=== PATIENT | female | born 1965 | race Caucasian/White ===

== ENCOUNTER 2019-02-28 20:57 | Emergency (ER) | payer OTHER ==
[~2019-02-28] VITALS: Ht 157.5 cm; Wt 84.0 kg
[~2019-02-28 20:57] MED LIST: LIDOcaine 1% W/epiNEPHrine 1:100,000 20ml vial ONE
[2019-02-28] MEDS ORDERED: META800T87 PO (21:18)
[2019-02-28 21:28] VITALS: BP 142/97
== END 2019-02-28 21:31 | disposition home or self-care (01) ==
LOC: ER 20:57
DX: M62.830 Muscle spasm of back (principal); M54.6 Pain in thoracic spine; Z88.1 Allergy status to other antibiotic agents; Z88.2 Allergy status to sulfonamides; Z88.8 Allergy status to other drugs, medicaments and biological substances; Z79.899 Other long term (current) drug therapy
CPT/HCPCS: 99284

== ENCOUNTER 2019-03-13 23:33 | Emergency (ER) | payer OTHER ==
[~2019-03-13] VITALS: Ht 157.5 cm; Wt 84.1 kg
[~2019-03-13 23:33] MED LIST changes: -LIDOcaine 1% W/epiNEPHrine 1:100,000 20ml vial ONE; +META800T87 PO
[2019-03-13 23:36] VITALS: BP 153/92
[2019-03-14] MEDS ORDERED: guaiFENesin/DM/phenylephrine syrup 120ml bottle PO STA (00:02)
[2019-03-14] MEDS ORDERED: benzonatate 100mg capsule PO ONE (00:05)
[2019-03-14] MEDS ORDERED: guaiFENesin/DM 10ml UD oral syrup PO STA (00:05)
[2019-03-14] MEDS ORDERED: BENZ-16 PO (00:11)
[2019-03-14] MEDS ORDERED: ALBU18HF2 INH (00:11)
== END 2019-03-14 00:35 | disposition home or self-care (01) ==
LOC: ER 23:34
DX: J20.9 Acute bronchitis, unspecified (principal); Z88.1 Allergy status to other antibiotic agents; Z88.8 Allergy status to other drugs, medicaments and biological substances
CPT/HCPCS: 99283

== ENCOUNTER 2019-03-31 13:17 | Emergency (ER) | payer OTHER ==
[~2019-03-31] VITALS: Ht 157.5 cm; Wt 82.0 kg
[~2019-03-31 13:17] MED LIST changes: +ALBU18HF2 INH
[2019-03-31] MEDS ORDERED: ketorolac tromethamine 15mg/ml inj. IV ONE (13:35)
[2019-03-31] MEDS ORDERED: proCHLORperazine 10 MG/2 ml inj IV ONE (13:35)
[2019-03-31] MEDS ORDERED: diphenhydrAMINE 50 mg/ml inj IV ONE (13:35)
[2019-03-31] MEDS ORDERED: normal saline 1000ml 1,000 ML IV ONE (13:35)
[2019-03-31 14:11] LABS: BASOPHILS % (AUTO) 0.4 % (0-1); HEMATOCRIT 41.6 % (35.0-45.0); HEMOGLOBIN 14.3 g/dl (12.0-16.0); LYMPHOCYTES # (AUTO) 1.4 X10'3 (1.1-4.8); LYMPHOCYTES % (AUTO) 34.2 % (21-51); MEAN CORPUSCULAR HEMOGLOBIN 31.3 PG (27.0-31.0); MEAN CORPUSCULAR HGB CONC 34.4 g/dL (33.0-36.5); MEAN CORPUSCULAR VOLUME 90.9 FL (78-98); MEAN PLATELET VOLUME 7.1 FL (7.4-10.4); MONOCYTES # (AUTO) 0.3 X10'3 (0-0.9); MONOCYTES % (AUTO) 7.5 % (2-12); NEUTROPHILS # (AUTO) 2.4 X10'3 (1.8-7.7); NEUTROPHILS % (AUTO) 56.9 % (42-75); PLATELET COUNT 268 X10'3 (140-440); RED BLOOD COUNT 4.58 X10'6 (4.20-5.60); RED CELL DISTRIBUTION WIDTH 14.3 % (11.5-14.5); WHITE BLOOD COUNT 4.2 X10'3 (4.5-11.0)
[2019-03-31 14:21] LABS: ALANINE AMINOTRANSFERASE 23 U/L (12-78); ALBUMIN 4.1 G/DL (3.4-5.0); ALBUMIN/GLOBULIN RATIO 1.3 (1.1-1.5); ALKALINE PHOSPHATASE 87 IU/L (46-116); ANION GAP 7 (8-16); ASPARTATE AMINO TRANSFERASE 20 U/L (10-37); BILIRUBIN,TOTAL 0.3 MG/DL (0.1-1.0); BLOOD UREA NITROGEN 8 MG/DL (7-18); BUN/CREATININE RATIO 10.3 (6.6-38.0); CALCIUM 9.1 MG/DL (8.5-10.1); CHLORIDE 107 MMOL/L (99-107); CREATININE 0.78 MG/DL (0.40-0.90); GLUCOSE 99 MG/DL (70-104); POTASSIUM 3.3 MMOL/L (3.5-5.1); SODIUM 145 MMOL/L (135-145); TOTAL CARBON DIOXIDE 30.9 MMOL/L (24-32); TOTAL PROTEIN 7.3 G/DL (6.4-8.2); eGFR 78 ML/MIN
[2019-03-31 15:05] VITALS: BP 147/82
== END 2019-03-31 15:20 | disposition home or self-care (01) ==
LOC: ER 13:17
DX: G43.909 Migraine, unspecified, not intractable, without status migrainosus (principal); B34.9 Viral infection, unspecified; F17.200 Nicotine dependence, unspecified, uncomplicated; Z88.1 Allergy status to other antibiotic agents; Z88.8 Allergy status to other drugs, medicaments and biological substances
CPT/HCPCS: 36415; 80053; 85025; 87502; 87503; 96374; 96375; 99283; J0780; J1200; J1885; J7030

== ENCOUNTER 2019-04-11 00:13 | Emergency (ER) | payer OTHER ==
[~2019-04-11] VITALS: Ht 157.5 cm; Wt 83.6 kg
[2019-04-11 00:36] VITALS: BP 118/69
[2019-04-11] MEDS ORDERED: VANC250C12 PO (00:58)
[2019-04-11 09:15] LABS: C DIFFICILE TOXINS A&B POSITIVE (Neg)
[2019-04-11 09:16] LABS: C DIFF ANTIGEN POSITIVE (NEGATIVE); C DIFF SPECIMEN=DIARRHEA? ACCEPTABLE
== END 2019-04-11 01:04 | disposition home or self-care (01) ==
LOC: ER 00:14
DX: R19.7 Diarrhea, unspecified (principal); Z88.1 Allergy status to other antibiotic agents; Z88.8 Allergy status to other drugs, medicaments and biological substances
CPT/HCPCS: 87324; 87449; 99283

== ENCOUNTER 2019-04-19 12:05 | Outpatient (CLI) | payer OTHER ==
[~2019-04-19 12:05] MED LIST changes: +VANC250C12 PO
[2019-04-19 12:46] LABS: BASOPHILS % (AUTO) 0.6 % (0-1); EOSINOPHILS # (AUTO) 0.1 X10'3 (0-0.9); EOSINOPHILS % (AUTO) 0.8 % (0-6); HEMATOCRIT 40.8 % (35.0-45.0); HEMOGLOBIN 13.9 g/dl (12.0-16.0); LYMPHOCYTES # (AUTO) 1.7 X10'3 (1.1-4.8); LYMPHOCYTES % (AUTO) 26.1 % (21-51); MEAN CORPUSCULAR HEMOGLOBIN 30.6 PG (27.0-31.0); MEAN CORPUSCULAR HGB CONC 33.9 g/dL (33.0-36.5); MEAN CORPUSCULAR VOLUME 90.3 FL (78-98); MEAN PLATELET VOLUME 6.4 FL (7.4-10.4); MONOCYTES # (AUTO) 0.5 X10'3 (0-0.9); MONOCYTES % (AUTO) 7.7 % (2-12); NEUTROPHILS # (AUTO) 4.1 X10'3 (1.8-7.7); NEUTROPHILS % (AUTO) 64.8 % (42-75); PLATELET COUNT 474 X10'3 (140-440); RED BLOOD COUNT 4.52 X10'6 (4.20-5.60); RED CELL DISTRIBUTION WIDTH 14.4 % (11.5-14.5); WHITE BLOOD COUNT 6.4 X10'3 (4.5-11.0)
[2019-04-19 13:00] LABS: ALANINE AMINOTRANSFERASE 50 U/L (12-78); ALBUMIN 3.4 G/DL (3.4-5.0); ALBUMIN/GLOBULIN RATIO 0.9 (1.1-1.5); ALKALINE PHOSPHATASE 90 IU/L (46-116); ANION GAP 10 (8-16); ASPARTATE AMINO TRANSFERASE 28 U/L (10-37); BILIRUBIN,TOTAL 0.2 MG/DL (0.1-1.0); BLOOD UREA NITROGEN 5 MG/DL (7-18); BUN/CREATININE RATIO 6.7 (6.6-38.0); CALCIUM 9.2 MG/DL (8.5-10.1); CHLORIDE 106 MMOL/L (99-107); CREATININE 0.75 MG/DL (0.40-0.90); GLUCOSE 64 MG/DL (70-104); POTASSIUM 3.4 MMOL/L (3.5-5.1); SODIUM 146 MMOL/L (135-145); TOTAL CARBON DIOXIDE 30.5 MMOL/L (24-32); TOTAL PROTEIN 7.3 G/DL (6.4-8.2); eGFR 81 ML/MIN
== END 2019-04-19 23:59 | disposition home or self-care (01) ==
LOC: LAB 12:05
PROVIDERS: ATTEND Nurse Practitioner Family
DX: J01.00 Acute maxillary sinusitis, unspecified (principal); R51 Headache; R53.83 Other fatigue
CPT/HCPCS: 36415; 70450; 70486; 80053; 82784; 84439; 84443; 85025; 86663; 86664; 86665

== ENCOUNTER 2019-08-02 10:36 | Day surgery (SDC) | payer OTHER ==
[2019-08-02 10:50] VITALS: BP 169/63
[2019-08-02] MEDS ORDERED: BEZLOTOXUMAB IV ONE (11:05)
[2019-08-02] MEDS ORDERED: NORMAL SALINE IV ONE (11:05)
[2019-08-02 13:15] VITALS: BP 152/64
[2019-08-02] MEDS ORDERED: ESTR1PAT96 TOP (14:43)
[2019-08-02] MEDS ORDERED: TRAM50TA2 PO (14:44)
[2019-08-02] MEDS ORDERED: VANCOMYCIN PO (14:50)
[2019-08-02] MEDS ORDERED: DULO60CA45 PO (14:51)
[2019-08-02] MEDS ORDERED: DULO-31 PO (14:52)
== END 2019-08-02 13:15 | disposition home or self-care (01) ==
LOC: SSTAY O 10:36
PROVIDERS: ATTEND Internal Medicine
DX: A04.71 Enterocolitis due to Clostridium difficile, recurrent (principal)
CPT/HCPCS: 96365; J0565; J7050

== ENCOUNTER 2019-08-13 10:54 | Outpatient (CLI) | payer OTHER ==
[~2019-08-13 10:54] MED LIST changes: -ALBU18HF2 INH; +DULO-31 PO; +DULO60CA45 PO; +ESTR1PAT96 TOP; -META800T87 PO; +TRAM50TA2 PO; -VANC250C12 PO; +VANCOMYCIN PO
[2019-08-13 12:19] LABS: C DIFF ANTIGEN POSITIVE (NEGATIVE); C DIFF SPECIMEN=DIARRHEA? ACCEPTABLE; C DIFFICILE TOXINS A&B POSITIVE (Neg)
== END 2019-08-13 23:59 | disposition home or self-care (01) ==
LOC: LAB 10:54
PROVIDERS: ATTEND Internal Medicine
DX: A04.71 Enterocolitis due to Clostridium difficile, recurrent (principal)
CPT/HCPCS: 87324; 87449

== ENCOUNTER 2020-02-11 09:31 | Day surgery (SDC) | payer BC ==
[~2020-02-11] VITALS: Ht 157.5 cm; Wt 68.2 kg
[2020-02-11] MEDS ORDERED: fentaNYL/PF 50MCG/1 ML 2ML syringe ONE ×3 (09:48→16:15)
[2020-02-11] MEDS ORDERED: MIDAZolam 5mg/5ml vial ONE ×2 (09:48→14:46)
[2020-02-11] MEDS ORDERED: META800T87 PO (09:59)
[2020-02-11 13:05] VITALS: BP 125/83
[2020-02-11] MEDS ORDERED: LIDOcaine Viscous 15ml cup ONE (15:45)
[2020-02-11 16:34] VITALS: BP 112/71
[2020-02-11 16:44] VITALS: BP 106/73
[2020-02-11 16:54] VITALS: BP 121/71
[2020-02-11 17:04] VITALS: BP 122/78
[2020-02-11 17:08] VITALS: BP 121/54
== END 2020-02-11 17:20 | disposition home or self-care (01) ==
LOC: GI LAB 09:31
PROVIDERS: ATTEND Internal Medicine Gastroenterology
DX: R19.7 Diarrhea, unspecified (principal); R12 Heartburn; K29.50 Unspecified chronic gastritis without bleeding; K21.00 Gastro-esophageal reflux disease with esophagitis, without bleeding; K22.70 Barrett's esophagus without dysplasia; F17.210 Nicotine dependence, cigarettes, uncomplicated
CPT/HCPCS: 43239; 45378; 99152; 99153; J2250; J3010; J7040; A4620

== ENCOUNTER 2020-11-01 19:01 | Emergency (ER) | payer BC, OTHER ==
[~2020-11-01] VITALS: Ht 162.6 cm; Wt 72.7 kg
[~2020-11-01 19:01] MED LIST changes: +META800T87 PO; -VANCOMYCIN PO
[2020-11-01 19:23] VITALS: BP 128/62
== END 2020-11-01 21:26 | disposition left against medical advice (07) ==
LOC: ER 19:01 → EEVIPCON 19:01 → ER 21:26
DX: R05 Cough (principal); R09.89 Other specified symptoms and signs involving the circulatory and respiratory systems; Z20.822 Contact with and (suspected) exposure to COVID-19; Z53.21 Procedure and treatment not carried out due to patient leaving prior to being seen by health care provider; Z88.2 Allergy status to sulfonamides; Z79.899 Other long term (current) drug therapy
CPT/HCPCS: 36415; 87635; C9803; U0003; U0005

== ENCOUNTER 2020-12-24 12:51 | Outpatient (CLI) | payer BC ==
[~2020-12-24 12:51] MED LIST changes: -DULO60CA45 PO; +DULO60CA59 PO
== END 2020-12-24 23:59 | disposition home or self-care (01) ==
LOC: RAD 12:51
PROVIDERS: ATTEND Family Medicine
DX: M48.061 Spinal stenosis, lumbar region without neurogenic claudication (principal); M48.02 Spinal stenosis, cervical region; M25.78 Osteophyte, vertebrae
CPT/HCPCS: 72141; 72146; 72148

== ENCOUNTER 2020-12-25 12:43 | Outpatient (CLI) | payer BC ==
[2020-12-25 13:54] LABS: EOSINOPHILS # (AUTO) 0.1 X10'3 (0-0.9); EOSINOPHILS % (AUTO) 2.1 % (0-6); HEMATOCRIT 40.1 % (35.0-45.0); HEMOGLOBIN 13.9 g/dl (12.0-16.0); LYMPHOCYTES # (AUTO) 1.8 X10'3 (1.1-4.8); LYMPHOCYTES % (AUTO) 40.5 % (21-51); MEAN CORPUSCULAR HEMOGLOBIN 32.7 PG (27.0-31.0); MEAN CORPUSCULAR HGB CONC 34.6 g/dL (33.0-36.5); MEAN CORPUSCULAR VOLUME 94.5 FL (78-98); MEAN PLATELET VOLUME 6.6 FL (7.4-10.4); MONOCYTES # (AUTO) 0.4 X10'3 (0-0.9); MONOCYTES % (AUTO) 8.1 % (2-12); NEUTROPHILS # (AUTO) 2.1 X10'3 (1.8-7.7); NEUTROPHILS % (AUTO) 48.3 % (42-75); PLATELET COUNT 316 X10'3 (140-440); RED BLOOD COUNT 4.25 X10'6 (4.20-5.60); RED CELL DISTRIBUTION WIDTH 13.4 % (11.5-14.5); WHITE BLOOD COUNT 4.4 X10'3 (4.5-11.0)
[2020-12-25 13:56] LABS: CLARITY,URINE CLEAR (Clear); COLOR,URINE STRAW (Yellow); GLUCOSE, URINE NEGATIVE (Neg); KETONES,URINE NEGATIVE (Neg); LEUKOCYTE ESTERASE ,URINE NEGATIVE (Neg); NITRITES, URINE NEGATIVE (Neg); OCCULT BLOOD,URINE NEGATIVE (Neg); PROTEIN,URINE NEGATIVE (Neg); UA COLLECTION TYPE CLN CATCH MIDSTREAM; UROBILINOGEN,URINE 0.2 E.U/dL (0.2-1.0)
[2020-12-25 14:28] LABS: ALANINE AMINOTRANSFERASE 26 U/L (12-78); ALBUMIN 3.7 G/DL (3.4-5.0); ALBUMIN/GLOBULIN RATIO 1.1 (1.1-1.5); ALKALINE PHOSPHATASE 101 IU/L (46-116); ANION GAP 7 (8-16); ASPARTATE AMINO TRANSFERASE 17 U/L (10-37); BILIRUBIN,TOTAL 0.3 MG/DL (0.1-1.0); BLOOD UREA NITROGEN 11 MG/DL (7-18); BUN/CREATININE RATIO 13.3 (6.6-38.0); CALCIUM 8.5 MG/DL (8.5-10.1); CHLORIDE 106 MMOL/L (99-107); CHOL/HDL RATIO 3.6 (0.00-4.99); CHOLESTEROL 231 MG/DL (0-200); CREATININE 0.83 MG/DL (0.40-0.90); GLUCOSE 95 MG/DL (70-104); HDL CHOLESTEROL 65 MG/DL (35-60); LACTATE DEHYDROGENASE 197 U/L (81-234); LDL CHOLESTEROL 130 MG/DL (50-100); POTASSIUM 3.6 MMOL/L (3.5-5.1); SODIUM 142 MMOL/L (135-145); TOTAL CARBON DIOXIDE 28.6 MMOL/L (24-32); TOTAL PROTEIN 7.2 G/DL (6.4-8.2); TRIGLYCERIDES 103 MG/DL (20-135); eGFR 72 ML/MIN
== END 2020-12-25 23:59 | disposition home or self-care (01) ==
LOC: RAD 12:43
PROVIDERS: ATTEND Family Medicine
DX: Z00.01 Encounter for general adult medical examination with abnormal findings (principal); D36.10 Benign neoplasm of peripheral nerves and autonomic nervous system, unspecified
CPT/HCPCS: 36415; 73718; 80053; 80061; 81003; 83615; 84439; 84443; 85025

== ENCOUNTER 2021-01-25 19:04 | Emergency (ER) | payer BC, OTHER ==
[~2021-01-25] VITALS: Ht 157.5 cm; Wt 85.0 kg
[2021-01-25] MEDS ORDERED: ondansetron 4mg rapidly disintigrating tab PO ONE (19:45)
[2021-01-25 19:52] LABS: EOSINOPHILS # (AUTO) 0.1 X10'3 (0-0.9); EOSINOPHILS % (AUTO) 1.8 % (0-6); HEMATOCRIT 41.8 % (35.0-45.0); HEMOGLOBIN 14.1 g/dl (12.0-16.0); LYMPHOCYTES # (AUTO) 1.3 X10'3 (1.1-4.8); LYMPHOCYTES % (AUTO) 29.8 % (21-51); MEAN CORPUSCULAR HEMOGLOBIN 31.7 PG (27.0-31.0); MEAN CORPUSCULAR HGB CONC 33.7 g/dL (33.0-36.5); MEAN CORPUSCULAR VOLUME 94.1 FL (78-98); MEAN PLATELET VOLUME 6.7 FL (7.4-10.4); MONOCYTES # (AUTO) 0.4 X10'3 (0-0.9); MONOCYTES % (AUTO) 8.2 % (2-12); NEUTROPHILS # (AUTO) 2.6 X10'3 (1.8-7.7); NEUTROPHILS % (AUTO) 59.2 % (42-75); PLATELET COUNT 319 X10'3 (140-440); RED BLOOD COUNT 4.44 X10'6 (4.20-5.60); RED CELL DISTRIBUTION WIDTH 13.8 % (11.5-14.5); WHITE BLOOD COUNT 4.4 X10'3 (4.5-11.0)
[2021-01-25 20:09] LABS: ALANINE AMINOTRANSFERASE 30 U/L (12-78); ALBUMIN/GLOBULIN RATIO 1.1 (1.1-1.5); ALKALINE PHOSPHATASE 100 IU/L (46-116); ANION GAP 10 (8-16); ASPARTATE AMINO TRANSFERASE 20 U/L (10-37); BILIRUBIN,TOTAL 0.3 MG/DL (0.1-1.0); BLOOD UREA NITROGEN 14 MG/DL (7-18); BUN/CREATININE RATIO 16.5 (6.6-38.0); CHLORIDE 103 MMOL/L (99-107); CREATININE 0.85 MG/DL (0.40-0.90); GLUCOSE 101 MG/DL (70-104); POTASSIUM 4.3 MMOL/L (3.5-5.1); SODIUM 141 MMOL/L (135-145); TOTAL CARBON DIOXIDE 28.5 MMOL/L (24-32); TOTAL PROTEIN 7.7 G/DL (6.4-8.2); eGFR 70 ML/MIN
[2021-01-25] MEDS ORDERED: iohexol 350MG/ML 100ml bottle IV ONE (20:30)
[2021-01-25] MEDS ORDERED: ONDA4TAB6 PO (21:49)
[2021-01-25 22:36] VITALS: BP 144/100
== END 2021-01-25 22:39 | disposition home or self-care (01) ==
LOC: ER 19:04 → EEVIPCON 19:04 → ER 22:39
DX: B34.9 Viral infection, unspecified (principal); R05.9 Cough, unspecified; R06.02 Shortness of breath; R50.9 Fever, unspecified; Z88.1 Allergy status to other antibiotic agents; Z88.8 Allergy status to other drugs, medicaments and biological substances; Z79.899 Other long term (current) drug therapy
CPT/HCPCS: 36415; 71045; 71275; 80053; 85025; 87502; 87503; 93005; 99285; Q9967

== ENCOUNTER 2021-03-10 19:45 | Emergency (ER) | payer BC ==
[~2021-03-10] VITALS: Ht 157.5 cm; Wt 85.0 kg
[~2021-03-10 19:45] MED LIST changes: +ONDA4TAB6 PO
[2021-03-10] MEDS ORDERED: ketorolac trometh inj. 60 MG/2 ML VIAL IM ONE (19:50)
[2021-03-10] MEDS ORDERED: BUPIVAcaine 0.25% w/Epi /PF 30ml vial SQ ONE (19:50)
[2021-03-10] MEDS ORDERED: triamcinolone acetonide 40mg/ml inj IM ONE (19:50)
[2021-03-10 19:58] VITALS: BP 152/93
[2021-03-10] MEDS ORDERED: BUPIVAcaine 0.5% inj/PF 30 ml vial IJ ONE (20:10)
== END 2021-03-10 20:30 | disposition home or self-care (01) ==
LOC: ER 19:45
DX: M79.18 Myalgia, other site (principal); M54.2 Cervicalgia; F17.200 Nicotine dependence, unspecified, uncomplicated; Z88.1 Allergy status to other antibiotic agents; Z88.8 Allergy status to other drugs, medicaments and biological substances; Z79.899 Other long term (current) drug therapy
CPT/HCPCS: 20553; 96372; 99284; J1885; 20552

== ENCOUNTER 2021-11-26 14:57 | Outpatient (CLI) | payer BC | END 2021-11-26 23:59 | disposition home or self-care (01) | LOC: RAD 14:57 | PROVIDERS: ATTEND Family Medicine | DX: S83.241A Other tear of medial meniscus, current injury, right knee, initial encounter (principal); M25.461 Effusion, right knee; M70.51 Other bursitis of knee, right knee; X58.XXXA Exposure to other specified factors, initial encounter; Y93.89 Activity, other specified; Y92.89 Other specified places as the place of occurrence of the external cause; Y99.8 Other external cause status | CPT/HCPCS: 73721 ==

== ENCOUNTER 2022-08-31 14:42 | Outpatient (CLI) | payer BC | END 2022-08-31 23:59 | disposition home or self-care (01) | LOC: RAD 14:42 | PROVIDERS: ATTEND Orthopaedic Surgery | DX: S83.231A Complex tear of medial meniscus, current injury, right knee, initial encounter (principal); M25.561 Pain in right knee; M70.41 Prepatellar bursitis, right knee; M25.461 Effusion, right knee; X58.XXXA Exposure to other specified factors, initial encounter; Y93.89 Activity, other specified; Y92.89 Other specified places as the place of occurrence of the external cause; Y99.8 Other external cause status | CPT/HCPCS: 73721 ==

== ENCOUNTER 2023-08-21 04:11 | Emergency (ER) | payer BC ==
[~2023-08-21] VITALS: Ht 154.9 cm; Wt 86.4 kg
[~2023-08-21 04:11] MED LIST changes: +CHOL20004 PO; -DULO-31 PO; +ESOM20CA PO; -ESTR1PAT96 TOP; +FAMO-128 PO; +GABA-530 PO; -META800T87 PO; -ONDA4TAB6 PO
[2023-08-21] MEDS: BUPIVAcaine/PF 7.5mg/ml (0.75%) 10ml vial IJ ONE (04:48)
[2023-08-21] MEDS ORDERED: HYDR-3973 PO (05:49)
[2023-08-21] MEDS: HYDROcodone/acetaminophen 10/325mg tab PO ONE (05:50)
[2023-08-21] MEDS: LIDOcaine 1% (10mg/ml)w/preservative inj. 20ml MDV ONE (05:50)
[2023-08-21 05:55] VITALS: BP 180/109; PULSE 93; RESP 16; TEMP 97.9; O2SAT 98
[2023-08-21] MEDS ORDERED: PENI500T2 PO (05:59)
== END 2023-08-21 05:57 | disposition home or self-care (01) ==
LOC: ER 04:12
DX: S02.5XXA Fracture of tooth (traumatic), initial encounter for closed fracture (principal); M19.90 Unspecified osteoarthritis, unspecified site; F32.A Depression, unspecified; F17.200 Nicotine dependence, unspecified, uncomplicated; Z88.1 Allergy status to other antibiotic agents; Z88.8 Allergy status to other drugs, medicaments and biological substances; Z79.899 Other long term (current) drug therapy; X58.XXXA Exposure to other specified factors, initial encounter; Y93.89 Activity, other specified; Y92.89 Other specified places as the place of occurrence of the external cause; Y99.8 Other external cause status
CPT/HCPCS: 64400; 99284; J3490; A6449

== ENCOUNTER 2023-12-28 23:33 | Emergency (ER) | payer BC ==
[~2023-12-28] VITALS: Ht 154.9 cm; Wt 89.5 kg
[2023-12-28 23:58] VITALS: BP 137/91; PULSE 93; RESP 16; TEMP 98.2; O2SAT 97
[2023-12-29] MEDS: aspirin 325mg tablet, delayed-release (Ecotrin) PO ONE (00:18)
== END 2023-12-29 01:16 | disposition home or self-care (01) ==
LOC: EEVIPCON 23:34 → ER 23:34
DX: M71.22 Synovial cyst of popliteal space [Baker], left knee (principal); M25.562 Pain in left knee; M25.462 Effusion, left knee; M19.90 Unspecified osteoarthritis, unspecified site; Z88.1 Allergy status to other antibiotic agents; Z88.8 Allergy status to other drugs, medicaments and biological substances; Z88.2 Allergy status to sulfonamides; Z79.899 Other long term (current) drug therapy
CPT/HCPCS: 73700; 93971; 99284

== ENCOUNTER 2024-06-27 08:46 | Outpatient (CLI) | payer BC ==
--- NOTE | 2024-06-27 11:49 | VASCULAR REPORT ---
ULTRASOUND RENAL CLINICAL INDICATION: Renal artery stenosis TECHNIQUE: Real-time sonographic, duplex, and color Doppler images of the kidneys were obtained. FINDINGS: The right kidney measures 12 cm and is normal in size. The right renal echogenicity, contou r and cortical thickness are within normal limits. No hydronephrosis, large masses or perinephric flu id is seen. The left kidney measures 11 cm and is normal in size. The left renal echogenicity, contour, and corti michelle thickness are within normal limits. No hydronephrosis, large masses or perinephric fluid is seen. Subsequent Doppler interrogation of the kidneys was performed. Neither artery was seen in its entiret y due to overlying bowel gas. On the right, the internal renal artery Doppler showed good upstroke d uring systole with a Resistive Index is 0.6 . The velocity of the renal artery by the hilum measur es 66 cm/sec, in the mid region 105 cm/sec and distally measures 84 cm/sec. The velocity within the aorta measures 91 m/sec. On the left internal renal artery Doppler showed good upstroke during systole with a Resistive Index IS 0.65 . The velocity of the renal artery by the hilum measures 102 cm/sec, in the mid region 112 cm/sec and distally measures 104 cm/sec. IMPRESSION: Normal examination. [<reference, normal RI <.7>]
== END 2024-06-27 23:59 | disposition home or self-care (01) ==
LOC: VAS 08:46
PROVIDERS: ATTEND Nurse Practitioner Family
DX: I10 Essential (primary) hypertension (principal)
CPT/HCPCS: 93975

== ENCOUNTER 2024-06-27 08:54 | Outpatient (CLI) | payer BC ==
[2024-06-27 09:36] LABS: EOSINOPHILS # (AUTO) 0.1 X10'3 (0-0.9); EOSINOPHILS % (AUTO) 2.6 % (0-6); HEMATOCRIT 45.5 % (35.0-45.0); HEMOGLOBIN 15.1 g/dl (12.0-16.0); LYMPHOCYTES # (AUTO) 1.3 X10'3 (1.1-4.8); LYMPHOCYTES % (AUTO) 31.4 % (21-51); MEAN CORPUSCULAR HGB CONC 33.1 g/dL (33.0-36.5); MEAN CORPUSCULAR VOLUME 93.7 FL (78-98); MEAN PLATELET VOLUME 7.1 FL (7.4-10.4); MONOCYTES # (AUTO) 0.3 X10'3 (0-0.9); MONOCYTES % (AUTO) 8.4 % (2-12); NEUTROPHILS # (AUTO) 2.3 X10'3 (1.8-7.7); NEUTROPHILS % (AUTO) 56.6 % (42-75); PLATELET COUNT 346 X10'3 (140-440); RED BLOOD COUNT 4.86 X10'6 (4.20-5.60); RED CELL DISTRIBUTION WIDTH 14.3 % (11.5-14.5)
[2024-06-27 09:49] LABS: HEMOGLOBIN A1C 5.5 % (4.5-6.2)
[2024-06-27 10:01] LABS: % IRON SATURATION 31 % (11-46); IRON 119 UG/DL (49-151); TOTAL IRON BINDING CAPACITY 385 UG/DL (259-388)
[2024-06-27 10:16] LABS: ALANINE AMINOTRANSFERASE 33 U/L (12-78); ALBUMIN 3.9 G/DL (3.4-5.0); ALBUMIN/GLOBULIN RATIO 1.2 (1.1-1.5); ALKALINE PHOSPHATASE 95 IU/L (46-116); ANION GAP 9 (8-16); ASPARTATE AMINO TRANSFERASE 22 U/L (10-37); BILIRUBIN,TOTAL 0.5 MG/DL (0.1-1.0); BLOOD UREA NITROGEN 9 MG/DL (7-18); BUN/CREATININE RATIO 12.5 (10.0-20.0); CALCIUM 8.7 MG/DL (8.5-10.1); CHLORIDE 109 MMOL/L (99-107); CHOLESTEROL 220 MG/DL (0-200); CREATININE 0.72 MG/DL (0.40-0.90); FERRITIN 113 NG/ML (8-252); FREE T4 (FREE THYROXINE) 1.08 NG/DL (0.73-1.40); GLUCOSE 110 MG/DL (70-104); HDL CHOLESTEROL 74 MG/DL (35-60); LDL CHOLESTEROL 124 MG/DL (50-100); POTASSIUM 3.8 MMOL/L (3.5-5.1); SODIUM 144 MMOL/L (135-145); THYROID STIMULATING HORMONE 0.55 ulU/ml (0.34-4.50); TOTAL CARBON DIOXIDE 26.2 MMOL/L (24-32); TOTAL PROTEIN 7.2 G/DL (6.4-8.2); TRIGLYCERIDES 82 MG/DL (20-135); eGFR 83 ML/MIN
[2024-06-28 09:16] LABS: VITAMIN D, 25-HYDROXY 33.9 ng/mL (30.0-100.0)
[2024-06-28 11:17] LABS: FOLATE SERUM(FOLIC) 14.1 ng/mL (>3.0)
== END 2024-06-27 23:59 | disposition home or self-care (01) ==
LOC: LAB 08:54
PROVIDERS: ATTEND Nurse Practitioner Family
DX: R79.89 Other specified abnormal findings of blood chemistry (principal); E78.5 Hyperlipidemia, unspecified; M85.80 Other specified disorders of bone density and structure, unspecified site; R68.89 Other general symptoms and signs; I10 Essential (primary) hypertension; D51.9 Vitamin B12 deficiency anemia, unspecified; E11.9 Type 2 diabetes mellitus without complications; E55.9 Vitamin D deficiency, unspecified; R94.6 Abnormal results of thyroid function studies
CPT/HCPCS: 36415; 80053; 80061; 82306; 82607; 82728; 82746; 83036; 83540; 83550; 84439; 84443; 85025

== ENCOUNTER 2024-06-28 10:38 | Outpatient (CLI) | payer BC ==
--- NOTE | 2024-06-28 13:20 | RADIOLOGY REPORT ---
CLINICAL HISTORY: PAIN IN LEFT KNEE,PAIN IN RIGHT KNEE,OTHER SPECIFIED SOFT TISSUE DISORDERS COMPARISON: MRI dated 11/26/2021. MRI dated 08/31/2022. TECHNIQUE: Multisequence multiplanar MRI images of the right knee were obtained without contrast. FINDINGS: Cruciate ligaments: ACL and PCL are intact and otherwise unremarkable. Extensor mechanism: Quadriceps mechanism and patellar tendon are intact. Collateral ligaments: Medial and lateral collateral ligaments are intact and otherwise unremarkable. Menisci: Complex, multidirectional tear at the junction of the posterior horn and posterior root misa chment of the medial meniscus involving zones 3 and 2 with irregular attenuated fibers of the posteri or root attachment. There is also severe blunting of the body of the medial meniscus, may be sequela of prior meniscectomy if the patient has had prior meniscal surgery. Superimposed free edge fraying or free edge tear of the body of the medial meniscus not excluded. Cartilage: Chondral thinning, fissuring, and areas of full-thickness or near full-thickness chondral loss involving the weight-bearing zone of the medial femoral condyle medial tibial plateau. Chondral fraying and mild fissuring in the patellofemoral compartment. Mild chondral thinning in the lateral c ompartment. Bones: No acute fracture or focal marrow contusion Joint fluid: Moderate joint effusion with mild synovitis. Other: Popliteal cyst measures up to 4.5 cm in craniocaudal dimension. IMPRESSION: 1. Complex tear at the junction of the posterior horn and posterior root attachment of the medial men iscus. 2. Severe blunting of the free edge of the body of the medial meniscus, may be sequelae of prior meni scal surgery. Superimposed free edge tear or free edge fraying not excluded. 3. Chondromalacia, greatest in the medial compartment as detailed above. 4. Moderate joint effusion with mild synovitis. 5. Popliteal cyst.
--- NOTE | 2024-06-28 15:06 | RADIOLOGY REPORT ---
Procedure: MR MRI LOWER EXTREMITY LEFT 06/28/2024 11:55 AM INDICATION: PAIN IN LEFT KNEE,PAIN IN RIGHT KNEE,OTHER SPECIFIED SOFT TISSUE DISORDERS COMPARISON: CT CT LOWER EXTREMITY on DOS: 12/28/23, MRI LOWER EXTREMITY RIGHT on DOS: 08/31/22, MRI LOW ER EXTREMITY RIGHT on DOS: 11/26/21 TECHNIQUE: MRI was performed utilizing multiple appropriate imaging planes and pulse sequences. FINDINGS: Medial meniscus: Large inferior surfacing horizontal tear of the posterior horn, posterior root and b jose miguel. The body of the meniscus is markedly attenuated truncation of the free edge and In addition to t he horizontal tear in its posterior aspect . Lateral meniscus: Unremarkable. Anterior cruciate ligament: Unremarkable. Posterior cruciate ligament: Unremarkable. Medial collateral ligament: Unremarkable. Lateral stabilizers: Unremarkable. Extensor mechanism: Unremarkable. Pes anserine Tendons: Unremarkable. Medial compartment: Mild thinning and irregularity of the articular cartilage on both joint. Marginal osteophytosis noted. Lateral compartment: Unremarkable. Patellofemoral compartment: Grade 2 chondromalacia patella. Bones: No suspicious lesion. Joint Effusion: None. Popliteal fossa: Moderate-sized Ventura's cyst. Other: None. IMPRESSION: 1. Large tear of the body, posterior horn and posterior root of the medial meniscus with resultant mi ld medial compartment osteoarthritis. 2. Small suprapatellar joint effusion. 3. Moderate-sized Ventura's cyst.
== END 2024-06-28 23:59 | disposition home or self-care (01) ==
LOC: MRI02 10:38
PROVIDERS: ATTEND Student in an Organized Health Care Education/Training Program
DX: S83.241A Other tear of medial meniscus, current injury, right knee, initial encounter (principal); M25.562 Pain in left knee; M25.461 Effusion, right knee; M25.561 Pain in right knee; M65.88 Other synovitis and tenosynovitis, other site; M22.41 Chondromalacia patellae, right knee; M71.21 Synovial cyst of popliteal space [Baker], right knee; M79.89 Other specified soft tissue disorders; X58.XXXA Exposure to other specified factors, initial encounter; Y93.89 Activity, other specified; Y92.89 Other specified places as the place of occurrence of the external cause; Y99.8 Other external cause status
CPT/HCPCS: 73721

== ENCOUNTER 2025-02-06 19:54 | Emergency (ER) | payer BC, OTHER ==
[~2025-02-06] VITALS: Ht 157.5 cm; Wt 79.0 kg
[2025-02-06 19:57] VITALS: BP 137/81; PULSE 97; RESP 20; TEMP 97.8; O2SAT 97
--- NOTE | 2025-02-06 20:04 | Physician Documentation ---
History of Present Illness Stated Complaint: ABDOMINAL PAIN Time Seen by MD: 19:56 Primary Medical Doctor: None HPI 51-year-old female presents to the ED with a complaint midepigastric abdominal pain accompanied with bilateral lower back pain for the last week with increasing severity states she takes tirzepatide one of the GLP 1 agonist and has had a recent increased dosage. Denies any nausea vomiting or chest pain. Denies any dysuria. Denies any fevers. Day of Onset: Feb 06, 2025 Medication Reconciliation Allergies: Coded Allergies: cephalexin (Verified Allergy, Unknown, stomach florentino like fire, 03/10/21) metoclopramide (Verified Allergy, Unknown, IV makes me crazy, 03/10/21) sulfamethoxazole (Unverified Allergy, Unknown, 03/10/21) trimethoprim (Unverified Allergy, Unknown, 03/10/21) Scheduled Cholecalciferol (Vitamin D), 4,000 UNITS PO DAILY, (Reported) Duloxetine HCl (Cymbalta), 1 CAP PO DAILY, (Reported) Scheduled PRN Esomeprazole Mag Trihydrate* (Nexium*), 1 CAP PO QAM PRN for pain, (Reported) Famotidine (Pepcid), 1 TAB PO Q12H PRN for GERD, (Reported) Gabapentin (Gabapentin), 2-4 CAP PO TID PRN for pain, (Reported) Tramadol HCl (Tramadol HCl), 2 TABLET PO TID PRN for pain, (Reported) Past Medical History Past Medical History: Arthritis, Osteoarthritis, Depression Past Surgical History: no surgical history Alcohol Use: None Drug Use: none Lives In: Home Occupation: employed Physical Exam Physical Exam General: Alert, no apparent distress. Respiratory: Lungs clear, no respiratory distress. Cardiovascular: Regular rate and rhythm, no murmurs. Gastrointestinal: Soft,tender mid-epigastric pain via palpation positive cva tenderness Neurologic: Oriented x4. Psychiatric: Normal mood and affect. Skin: Normal color, warm and dry. No edema, no ecchymosis. Progress Results/Orders Results/Orders Orders - ZANE OSCAR NP Urinalysis, Cult If Indicated (02/06/25 19:56) Hcg, Ur Ql (02/06/25 19:56) Cbc/Diff (02/06/25 19:56) BMP (02/06/25 19:56) Lipase (02/06/25 19:56) CMP (02/06/25 19:56) Medical Decision Making Additional information obtaine: old records Findings Patient's laboratory values urinalysis and CT were all negative for any acute findings. There no signs of an infectious processes no signs of any blockages. Nor was there any signs of pancreatitis over the other than a minor elevation in her lipase. And does have a history of GERD and reports the pain is burning we will try a GI cocktail to see if it alleviates her symptoms and then discharge for outpatient therapy Differential Dx:Considerations: Cholelithasis, Constipation, Pancreatitis, Urinary tract infection Departure Disposition: HOME / SELF CARE / HOMELESS (ERASED) Impression: Primary Impression: Abdominal pain Additional Impression: Chronic GERD Condition: Stable Discharge Instructions: Abdominal Pain (Nonspecific) Referrals: NO PRIMARY CARE PROVIDER (PCP) Prescriptions ONDANSETRON ODT 4mg tablet (ONDANSETRON ODT) 4 Mg Tab.rapdis 1 TAB PO Q6H PRN PRN for nausea/vomiting for 4 Days, #16 TAB 0 Refills Prov: ZANE OSCAR NP 02/06/25 Signature Scribe Signature: r Attestation: Scribed for Zane Oscar [employer] Miller by Zane Oscar - VALDO . 02/06/25 20:19 ZANE OSCAR NP Feb 06, 2025 20:04
[2025-02-06 20:16] LABS: MEAN PLATELET VOLUME 7.4 FL (7.4-10.4); RED CELL DISTRIBUTION WIDTH 13.9 % (11.5-14.5)
[2025-02-06 20:33] LABS: CREATININE 0.84 MG/DL (0.40-0.90); TOTAL CARBON DIOXIDE 28.2 MMOL/L (24-32); eCRCL 58 ML/MIN; eGFR 70 ML/MIN
[2025-02-06] MEDS ORDERED: iohexol 300mg/ml 100ml inj. ONE (20:44)
[2025-02-06 20:52] LABS: LEUKOCYTE ESTERASE ,URINE NEGATIVE (Neg); NITRITES, URINE NEGATIVE (Neg); OCCULT BLOOD,URINE TRACE-INTACT (Neg); URINE HCG NEGATIVE (NEG)
[2025-02-06 20:53] LABS: UA COLLECTION TYPE CLN CATCH MIDSTREAM
[2025-02-06 20:58] LABS: SQUAMOUS EPITHELIAL CELL,UR FEW /LPF (FEW)
--- NOTE | 2025-02-06 21:26 | RADIOLOGY REPORT ---
EXAM: CT CT ABDOMEN PELVIS W/ IV CONTRAST HISTORY: abd pain COMPARISON STUDY: None TECHNIQUE: A digital ui lead developer image was obtained. During the uneventful, intravenous administration of contrast material, multislice data acquisition was obtained through the abdomen and pelvis. The data set was subsequently reconstructed into multiplanar reformats. RADIATION DOSE: CTDI vol 23.1 mGy. DLP 1108 mGy.cm FINDINGS: Lungs: The lung bases are clear. Liver: Unremarkable. Spleen: Unremarkable. Pancreas: Unremarkable. Gallbladder: Prior cholecystectomy. Adrenals: 12 mm indeterminate left adrenal lesion. Kidneys: Unremarkable. Pelvic Viscera: Prior hysterectomy. Vasculature: Mild atherosclerotic vascular calcification. Retroperitoneum: Unremarkable. Bowel: No bowel obstruction. No CT evidence of appendicitis. Musculoskeletal: Grade 1 anterolisthesis of L4 on L5. Soft tissues: Unremarkable IMPRESSION: 1. No acute abdominopelvic abnormality. 2. 12 mm indeterminate left adrenal nodule. Comparison with prior imaging is suggested in assessing acuity and interval change. If no prior imaging available, a nonemergent MRI of the abdomen is suggested in further assessment. 3. Additional incidental findings as detailed.
[2025-02-06] MEDS: LIDOcaine 2% Viscous 15ml cup MM PRN (21:51)
[2025-02-06] MEDS: mag hydrox/Alum hydrox/simeth 30ml oral suspension PO ONE (21:51)
[2025-02-06] MEDS ORDERED: ONDA-243 PO (21:57)
== END 2025-02-06 22:22 | disposition home or self-care (01) ==
LOC: ER 19:54
DX: K21.9 Gastro-esophageal reflux disease without esophagitis (principal); M19.90 Unspecified osteoarthritis, unspecified site; F32.A Depression, unspecified; Z88.1 Allergy status to other antibiotic agents; Z88.2 Allergy status to sulfonamides; Z88.8 Allergy status to other drugs, medicaments and biological substances; Z79.899 Other long term (current) drug therapy
CPT/HCPCS: 36415; 74177; 80053; 81001; 81025; 83690; 85025; 99285; Q9967